=== PATIENT | female | born 1995 | race Hispanic/Latino ===

== ENCOUNTER 2020-06-18 17:30 | Emergency (ER) | payer OTHER, BC ==
[~2020-06-18] VITALS: Ht 157.5 cm; Wt 95.7 kg
[2020-06-18 20:34] VITALS: BP 106/76
== END 2020-06-18 20:30 | disposition home or self-care (01) ==
LOC: FSED 17:37
DX: R09.1 Pleurisy (principal); R05 Cough; M54.6 Pain in thoracic spine; R06.00 Dyspnea, unspecified
CPT/HCPCS: 71046; 80048; 80076; 81003; 81025; 82553; 84484; 85025; 85379; 93005; 99283

== ENCOUNTER 2024-06-26 21:42 | Emergency (ER) | payer BC, OTHER ==
[~2024-06-26] VITALS: Ht 157.5 cm; Wt 96.6 kg
[~2024-06-26 21:42] MED LIST: KETOROLAC TROME10 MG PO
[2024-06-26] MEDS: KETOROLAC TROMETHAMINE 30 MG/ML VIAL IV STA (22:33)
[2024-06-26] MEDS: SODIUM CHLORIDE 0.9% 1000ML 1,000 ML IV ONE (22:33)
[2024-06-26] MEDS ORDERED: IOPAMIDOL 370 MG/ML 100 ML INFUS..BTL INJ ONE (22:39)
[2024-06-27] MEDS: FENTANYL CITRATE/PF 100MCG/2 ML INJ IV ONE (00:15)
[2024-06-27] MEDS: ACETAMINOPHEN 325 MG TAB PO ONE (00:52)
[2024-06-27 00:58] VITALS: PULSE 106; RESP 18; TEMP 98.9
[2024-06-27] MEDS ORDERED: MIDOL CAPLET1 EAC1 PO (01:22)
[2024-06-27 01:35] VITALS: BP 142/88; PULSE 106; RESP 18; TEMP 98.9; O2SAT 98
== END 2024-06-27 01:35 | disposition home or self-care (01) ==
LOC: FSED 21:59
DX: R05.9 Cough, unspecified (principal); R09.81 Nasal congestion; R10.30 Lower abdominal pain, unspecified; N94.6 Dysmenorrhea, unspecified; N88.8 Other specified noninflammatory disorders of cervix uteri; K76.0 Fatty (change of) liver, not elsewhere classified; Z11.52 Encounter for screening for COVID-19
CPT/HCPCS: 0223U; 74177; 76856; 80053; 80307; 81003; 81025; 83518; 85025; 87400; 96375; 99284; J1885; J3010; J7030; Q9967

== ENCOUNTER 2024-06-28 20:10 | Emergency (ER) | payer BC ==
[~2024-06-28] VITALS: Ht 160 cm; Wt 95.3 kg
[~2024-06-28 20:10] MED LIST changes: +MIDOL CAPLET1 EAC1 PO
[2024-06-28] MEDS ORDERED: ACETAMINOPHEN 325 MG TAB ONE (20:26)
[2024-06-28] MEDS: ACETAMINOPHEN 325 MG TAB PO ONE (20:30)
[2024-06-28 20:53] LABS: STREPTOCOCCUS GRP A ANTIGEN NEGATIVE (NEGATIVE)
[2024-06-28 20:54] LABS: CORONAVIRUS COVID-19 AG NEGATIVE (NEGATIVE); INFLUENZA A AG POSITIVE (NEGATIVE); INFLUENZA B AG NEGATIVE (NEGATIVE)
[2024-06-28 21:13] VITALS: PULSE 106; RESP 20; TEMP 101.1; O2SAT 100
== END 2024-06-28 21:35 | disposition home or self-care (01) ==
LOC: ER 20:25
DX: R50.9 Fever, unspecified (principal); J10.1 Influenza due to other identified influenza virus with other respiratory manifestations; R07.89 Other chest pain; R05.9 Cough, unspecified
CPT/HCPCS: 71046; 83518; 87070; 93005; 99284